=== PATIENT | female | born 1980 | race American Indian/Alaskan Native ===

== ENCOUNTER 2016-12-09 17:36 | Emergency (ER) | payer MEDICAID ==
[2016-12-09 18:19] LABS: Basophils % (Auto) 0.7 % (0.0-1.8); Eosinophils % (Auto) 3.7 % (0.0-4.3); Hematocrit 40.6 % (30.3-42.9); Hemoglobin 13.1 gm/dl (10.1-14.3); Mean Corpuscular HGB Conc 32 % (30-34); Mean Corpuscular Hemoglobin 27 pg (28-32); Mean Corpuscular Volume 85 fl (79-97); Platelet Count 295 K/mm3 (140-440); Red Cell Distribution Width 13.8 % (13.2-15.2); White Blood Count 12.2 K/mm3 (4.5-11.0)
[2016-12-09 18:33] LABS: Anion Gap 20 mmol/L; Blood Urea Nitrogen 16 mg/dL (7-17); Carbon Dioxide 21 mmol/L (22-30); Chloride 102.2 mmol/L (98-107); Glucose 144 mg/dL (65-100); Sodium 139 mmol/L (137-145)
[2016-12-10 02:39] VITALS: BP 127/83
--- NOTE | 2016-12-10 07:38 | XRay Report ---
ROUTINE CHEST, TWO VIEWS: History: Chest pain. Findings: PA and lateral views demonstrate the heart and mediastinal contour to be of normal size and shape. The lungs are clear and fully expanded and the soft tissues and bony structures are normal. IMPRESSION: Normal study.
--- NOTE | 2016-12-13 13:48 | ED Elopement Review ---
ED Pt Elopement review - Results review Lab results: Laboratory Tests 12/09/16 12/09/16 12/09/16 17:57 17:57 20:48 WBC 12.2 H RBC 4.80 Hgb 13.1 Hct 40.6 MCV 85 MCH 27 L MCHC 32 RDW 13.8 Plt Count 295 Lymph % (Auto) 31.9 [place] % (Auto) 8.3 H Eos % (Auto) 3.7 Baso % (Auto) 0.7 Lymph # 3.9 [place] # 1.0 H Eos # 0.5 H Baso # 0.1 Seg Neutrophils % 55.4 Seg Neutrophils # 6.7 Sodium 139 Potassium 4.0 Chloride 102.2 Carbon Dioxide 21 L Anion Gap 20 BUN 16 Creatinine 1.0 Estimated GFR > 60 BUN/Creatinine Ratio 16.00 Glucose 144 H Calcium 9.0 Troponin T < 0.010 < 0.010 12/09/16 23:46 WBC RBC Hgb Hct MCV MCH MCHC RDW Plt Count Lymph % (Auto) [place] % (Auto) Eos % (Auto) Baso % (Auto) Lymph # [place] # Eos # Baso # Seg Neutrophils % Seg Neutrophils # Sodium Potassium Chloride Carbon Dioxide Anion Gap BUN Creatinine Estimated GFR BUN/Creatinine Ratio Glucose Calcium Troponin T < 0.010 - Call Back decision Pt Call Back Decision: No action required
== END 2016-12-10 08:30 | disposition left against medical advice (07) ==
LOC: ED 17:36
DX: R07.89 Other chest pain (principal); M54.6 Pain in thoracic spine; E11.9 Type 2 diabetes mellitus without complications; Z88.1 Allergy status to other antibiotic agents; Z72.0 Tobacco use; Z53.21 Procedure and treatment not carried out due to patient leaving prior to being seen by health care provider
CPT/HCPCS: 36415; 71020; 80048; 84484; 85025; 93005; 93010